=== PATIENT | female | born 1990 | race Caucasian/White ===

== ENCOUNTER 2016-12-02 13:00 | Emergency (ER) | payer OTHER ==
[~2016-12-02] VITALS: Ht 157.5 cm; Wt 68.0 kg
[~2016-12-02 13:00] MED LIST: CYCL10TA2 PO; IBUP-1060 PO; NAPR500T PO; OXYC-323 PO
[2016-12-02 13:23] VITALS: BP 93/61
--- NOTE | 2016-12-02 13:35 | PHYS DOC ---
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 She states also she is coughing so much that she was vomiting. Patient states that she is also started being lightheaded and dizzy last night after coughing. She states that she's had a fever although has not taken her temperature. Patient states that her cough is been somewhat productive but it is been mucus. Patient denies any use of control. Patient does state that she's had a tubal ligation. She denies any recent travel. Review of Systems Review of Systems Constitutional: Denies fever or chills [] Eyes: Denies change in visual acuity, redness, or eye pain [] HENT: Denies nasal congestion or sore throat [] Respiratory: Denies cough or shortness of breath [] Cardiovascular: No additional information not addressed in HPI [] GI: Denies abdominal pain, nausea, vomiting, bloody stools or diarrhea [] : Denies dysuria or hematuria [] Musculoskeletal: Denies back pain or joint pain [] Integument: Denies rash or skin lesions [] Neurologic: Denies headache, focal weakness or sensory changes [] Endocrine: Denies polyuria or polydipsia [] Allergies Allergies Allergies Coded Allergies Type Severity Reaction Last Updated Verified No Known Drug Allergies 01/19/14 No Physical Exam Physical Exam Constitutional: Well developed, well nourished, no acute distress, non-toxic appearance. [] HENT: Normocephalic, atraumatic, bilateral external ears normal, oropharynx moist, no oral exudates, nose normal. Bilateral tympanic membranes appear to be normal. It with no erythematous no redness no exudate noted Eyes: PERRLA, EOMI, conjunctiva normal, no discharge. [] Neck: Normal range of motion, no tenderness, supple, no stridor. [] Cardiovascular:Heart rate regular rhythm, no murmur [] Lungs & Thorax: Bilateral breath sounds clear to auscultation [] Skin: Warm, dry, no erythema, no rash. [] Back: No tenderness Extremities: No tenderness, no cyanosis, no clubbing, ROM intact, no edema. [] Neurologic: Alert and oriented X 3, normal motor function, normal sensory function, no focal deficits noted. [] Psychologic: Affect normal, judgement normal, mood normal. [] Current Patient Data Vital Signs Vital Signs Date Time Temp Pulse Resp B/P (MAP) Pulse Ox O2 Delivery O2 Flow Rate FiO2 12/02/16 13:23 98.1 102 32 93/61 (72) 98 Room Air 98.1 Lab Values Laboratory Tests Test 12/02/16 12:43 12/02/16 13:55 POC Urine HCG, Qualitative Hcg negative (Negative) D-Dimer (Christie) 0.35 ug/mlFEU (0.00-0.50) EKG EKG [] Radiology/Procedures Radiology/Procedures [facility] [address] [place] [address] IMAGING REPORT Signed PATIENT: MILVIA LEWIS ACCOUNT: [id number] : 1990 LOCATION: ER AGE: 26 SEX: F EXAM STATUS: REG ER ORD. PHYSICIAN: KALIE CHAPARRO APRN REASON: cough, fever, SOA PROCEDURE: CHEST PA & LATERAL EXAM: CHEST 2 VIEWS History: Cough, fever COMPARISON: 08/16/2010 TECHNIQUE: PA and lateral chest radiographs FINDINGS: The cardiomediastinal silhouette is within normal limits. The lungs are clear bilaterally. The costophrenic sulci are clear and well demarcated bilaterally. IMPRESSION: No radiographic evidence of an acute cardiopulmonary abnormality. DICTATED and SIGNED BY: TODD GRAHAM MD DATE: 12/02/16 1420 CC: KALIE CHAPARRO APRN; NO PCP; NON,STAFF ~ [] Course & Med Decision Making Course & Med Decision Making Pertinent Labs and Imaging studies reviewed. (See chart for details) D-dimer negative. CXR negative. Patient will be provided with a inhaler for home use. With recommendations to use this for shortness of air difficulty breathing. Patient will be discharged home with recommendations to follow-up with her primary care physician next 3-5 days. Signs and symptoms to return back to emergency department been provided. Patient agrees with discharge instructions treatment regimens and follow-up recommendations. [] Dragon Disclaimer Dragon Disclaimer This electronic medical record was generated, in whole or in part, using a voice recognition dictation system. Departure Departure Impression: Primary Impression: Cough in adult Disposition: 01 HOME, SELF-CARE Condition: STABLE Referrals: NO PCP (PCP) Patient Instructions: Cough, Adult, [id number] Additional Instructions: Activity as tolerated Medication s prescribed You may also try warm tea and honey for your cough Followup with your primary care provider in 3-5 days Return to emergency department as needed or signs and symptoms that become worse. Scripts Albuterol Sulfate (PROAIR HFA INHALER) 8.5 Gm Hfa.aer.ad 1 PUFF INH PRN Q6HRS Y for SHORTNESS OF BREATH, #1 INHALER 0 Refills Prov: KALIE CHAPARRO APRN 12/02/16 KALIE CHAPARRO APRN December 02, 2016 13:35
--- NOTE | 2016-12-02 14:24 | RAD ---
EXAM: CHEST 2 VIEWS History: Cough, fever COMPARISON: 08/16/2010 TECHNIQUE: PA and lateral chest radiographs FINDINGS: The cardiomediastinal silhouette is within normal limits. The lungs are clear bilaterally. The costophrenic sulci are clear and well demarcated bilaterally. IMPRESSION: No radiographic evidence of an acute cardiopulmonary abnormality.
[2016-12-02] MEDS ORDERED: PROAIR HFA8.5 GM INH (14:39)
== END 2016-12-02 14:53 | disposition home or self-care (01) ==
LOC: ER 13:00
DX: R05 Cough (principal); R11.10 Vomiting, unspecified; R42 Dizziness and giddiness; R50.9 Fever, unspecified
CPT/HCPCS: 36415; 71020; 81025; 85379; 99285-25

== ENCOUNTER 2017-07-05 17:57 | Emergency (ER) | payer OTHER ==
[~2017-07-05] VITALS: Ht 157.5 cm; Wt 81.6 kg
[~2017-07-05 17:57] MED LIST changes: +NAPR-683 PO; -NAPR500T PO; +PROAIR HFA8.5 GM INH
[2017-07-05 18:38] VITALS: BP 102/55
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
== END 2017-07-05 20:18 | disposition home or self-care (01) ==
LOC: ER 17:57
DX: S00.93XA Contusion of unspecified part of head, initial encounter (principal); W22.8XXA Striking against or struck by other objects, initial encounter; Y93.89 Activity, other specified; Y99.8 Other external cause status; Y92.89 Other specified places as the place of occurrence of the external cause
CPT/HCPCS: 70450; 99284-25

== ENCOUNTER 2018-02-01 07:01 | Emergency (ER) | payer OTHER | END 2018-02-01 08:22 | disposition home or self-care (01) | LOC: ER 07:01 | DX: M79.672 Pain in left foot (principal); X50.9XXA Other and unspecified overexertion or strenuous movements or postures, initial encounter; Y93.89 Activity, other specified; Y99.8 Other external cause status; Y92.89 Other specified places as the place of occurrence of the external cause | CPT/HCPCS: 73630; 99284 ==

== ENCOUNTER 2018-04-07 12:17 | Emergency (ER) | payer OTHER ==
[~2018-04-07] VITALS: Ht 157.5 cm; Wt 83.0 kg
[~2018-04-07 12:17] MED LIST changes: +ACET-704 PO
[2018-04-07 12:27] VITALS: BP 111/65
--- NOTE | 2018-04-07 13:41 | PHYS DOC ---
Past Medical History Past Medical History: Other Additional Past Medical Histor: PLANTAR FACISITIS Past Surgical History: , Tubal ligation, Other Additional Past Surgical Histo: I&D ABSCESS, LYMPH NODES Alcohol Use: None Drug Use: None Adult General Chief Complaint Chief Complaint: LOWER EXT PAIN HPI HPI 27-year-old female presents for evaluation of left foot pain. She reports has been diagnosed with plantar fasciitis. 2 months ago she was seen by podiatry who gave her orthotics. She came into work today but was unable to wear the orthotics that were given to her because they were in the car with her to work. She reports has had ongoing pain in the foot. She denies any new trauma or injuries. She is tearful and states "I don't know how I am going to be able to walk and work if I can't get this pain to go away." She states the cook [employer] had given her prescription for meloxicam, that she had lost the prescription until recently when she just found under the seat of her car. She has not yet filled the prescription. Review of Systems Review of Systems Constitutional: Denies fever or chills [] Eyes: Denies change in visual acuity, redness, or eye pain [] HENT: Denies nasal congestion or sore throat [] Respiratory: Denies cough or shortness of breath [] Cardiovascular: No additional information not addressed in HPI [] Integument: Denies rash or skin lesions [] Neurologic: Denies headache, focal weakness or sensory changes [] All other systems were reviewed and found to be within normal limits, except as documented in this note. Allergies Allergies Allergies Coded Allergies Type Severity Reaction Last Updated Verified No Known Drug Allergies 01/19/14 No Physical Exam Physical Exam Constitutional: Well developed, well nourished, no acute distress, non-toxic appearance. [] Skin: Warm, dry, no erythema, no rash. [] Extremities: LEFT FOOT TTP AT HEEL AND PLANTAR MIDFOOT, no cyanosis, no clubbing , ROM intact, no edema. [] Neurologic: Alert and oriented X 3, normal motor function, normal sensory function, no focal deficits noted. [] Psychologic: Affect normal, judgement normal, mood normal. [] Current Patient Data Vital Signs Vital Signs Date Time Temp Pulse Resp B/P (MAP) Pulse Ox O2 Delivery O2 Flow Rate FiO2 04/07/18 12:27 97.7 82 18 111/65 (80) 97 Room Air 97.7 EKG EKG [] Radiology/Procedures Radiology/Procedures [] Course & Med Decision Making Course & Med Decision Making No radiology is clinically indicated. Symptoms are consistent with plantar fasciitis. Discussed with patient she may need a follow-up appointment with her cook [employer], they may discuss cortisone injections into the foot. Also she should fill the prescription she recently found for the meloxicam that he has already provided to her. Always wear her orthotics when she is to be on her feet at work especially. She is stable for discharge home. Dragon Disclaimer Dragon Disclaimer This electronic medical record was generated, in whole or in part, using a voice recognition dictation system. Departure Departure Impression: Primary Impression: Plantar fasciitis of left foot Disposition: 01 HOME, SELF-CARE Condition: STABLE Referrals: NO PCP (PCP) Patient Instructions: Plantar Fasciitis Additional Instructions: Call your cook [employer] and schedule a follow-up appointment. Your prescription for meloxicam as provided by your cook [employer]. Wear orthotics as provided by your cook [employer]. [employer]AC[employer]TA [employer] Apr 07, 2018 13:41
== END 2018-04-07 13:50 | disposition home or self-care (01) ==
LOC: ER 12:17
DX: M72.2 Plantar fascial fibromatosis (principal)
CPT/HCPCS: 99281

== ENCOUNTER 2018-07-04 07:41 | Emergency (ER) | payer OTHER ==
[~2018-07-04] VITALS: Ht 157.5 cm; Wt 87.5 kg
[~2018-07-04 07:41] MED LIST changes: -OXYC-323 PO; +OXYC1TAB15 PO
[2018-07-04 07:54] VITALS: BP 103/71
[2018-07-04] MEDS ORDERED: DEXAMETHASONE SOD PHOS 20 MG/5 ML VIAL. IM ONE (08:00)
[2018-07-04] MEDS ORDERED: PENI500T PO (08:00)
--- NOTE | 2018-07-04 09:14 | PHYS DOC ---
Past Medical History Past Medical History: No Pertinent History Additional Past Medical Histor: PLANTAR FACISITIS Past Surgical History: , Tubal ligation, Other Additional Past Surgical Histo: I&D ABSCESS, LYMPH NODES Alcohol Use: None Drug Use: None Adult General Chief Complaint Chief Complaint: SORE THROAT HPI HPI Patient is a 27 year old female presenting with sore throat 3 days hard to swallow no fever occasional cough history of strep throat feel similar. Symptoms moderate slowly worsening with time nonradiating Review of Systems Review of Systems Constitutional: Denies fever or chills [] Eyes: Denies change in visual acuity, redness, or eye pain [] HENT: Denies nasal congestion or sore throat [] Respiratory: Denies shortness of breath [] Musculoskeletal: Denies back pain or joint pain [] Integument: Denies rash or skin lesions [] Neurologic: Denies headache, focal weakness or sensory changes [] Endocrine: Denies polyuria or polydipsia [] All other systems were reviewed and found to be within normal limits, except as documented in this note. Current Medications Current Medications Current Medications Medications (Trade) Dose Ordered Sig/Ivan Start Time Stop Time Status Last Admin Dose Admin Dexamethasone Sodium Phosphate (Decadron) 6 mg 1X ONCE 07/04/18 08:00 07/04/18 08:01 DC 07/04/18 08:11 6 MG Allergies Allergies Allergies Coded Allergies Type Severity Reaction Last Updated Verified No Known Drug Allergies 01/19/14 No Physical Exam Physical Exam Constitutional: Well developed, well nourished, no acute distress, non-toxic appearance. [] HENT: Normocephalic, atraumatic, bilateral external ears normal, oropharynx moist, no oral exudates, nose normal. [] Eyes: PERRLA, EOMI, conjunctiva normal, no discharge. [] Neck: Normal range of motion, no tenderness, supple, no stridor. [] There is lymphadenopathy noted anterior cervical there is erythema of the posterior oral pharynx no exudate. Lungs & Thorax: Bilateral breath sounds clear to auscultation [] Abdomen: Bowel sounds normal, soft, no tenderness, no masses, no pulsatile masses. [] Skin: Warm, dry, no erythema, no rash. [] Back: No tenderness, no CVA tenderness. [] Extremities: No tenderness, no cyanosis, no clubbing, ROM intact, no edema. [] Neurologic: Alert and oriented X 3, normal motor function, normal sensory function, no focal deficits noted. [] Current Patient Data Vital Signs Vital Signs Date Time Temp Pulse Resp B/P (MAP) Pulse Ox O2 Delivery O2 Flow Rate FiO2 07/04/18 07:54 98.6 99 18 103/71 (82) 98 Room Air 98.6 EKG EKG [] Radiology/Procedures Radiology/Procedures [] Course & Med Decision Making Course & Med Decision Making Pertinent Labs and Imaging studies reviewed. (See chart for details) []Very likely strep pharyngitis based on clinical history. PENICILLIN. DECADRON [employer]URN [employer] Dragon Disclaimer Dragon Disclaimer This electronic medical record was generated, in whole or in part, using a voice recognition dictation system. Departure Departure Impression: Primary Impression: Pharyngitis Disposition: 01 HOME, SELF-CARE Condition: STABLE Patient Instructions: Sore Throat, [id number] Scripts Penicillin V Potassium (PENICILLIN V POTASSIUM) 500 Mg Tablet 1 TAB PO QID, #28 TAB Prov: ANDREW MENDOZA MD 07/04/18 ANDREW MENDOZA MD Jul 04, 2018 09:14
== END 2018-07-04 08:20 | disposition home or self-care (01) ==
LOC: ER 07:41
DX: J02.9 Acute pharyngitis, unspecified (principal); R13.10 Dysphagia, unspecified
CPT/HCPCS: 96372; 99283; J1100